=== PATIENT | male | born 1990 | race Hispanic/Latino ===

== ENCOUNTER 2024-03-16 17:02 | Inpatient (IN) | payer BC ==
[~2024-03-16] VITALS: Ht 170.2 cm; Wt 86.5 kg
[~2024-03-16 17:02] MED LIST: ATOR40TA69 PO; FENO145T PO; FISH1CAP20 PO; INSU100I35 SQ; NIAC250T34 PO
--- NOTE | 2024-03-16 18:11 | EKG ---
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
[2024-03-16 18:22] LABS: BASOPHILS # (AUTO) 0.03 K/uL (0.00-0.20); BASOPHILS % (AUTO) 0.5 % (0.0-5.0); EOSINOPHILS # (AUTO) 0.03 K/uL (0.00-0.70); EOSINOPHILS % (AUTO) 0.5 % (0.0-8.0); HEMATOCRIT 49.2 % (42-54); IMMATURE GRANULOCYTE ABSOLUTE 0.03 K/uL (0-1); LYMPHOCYTES # (AUTO) 2.1 K/uL (1.0-4.8); LYMPHOCYTES % (AUTO) 35.4 % (21.0-51.0); MEAN CORPUSCULAR HEMOGLOBIN 30.9 pg (27.0-33.0); MEAN CORPUSCULAR HGB CONC 37.4 g/dL (32.0-36.0); MEAN CORPUSCULAR VOLUME 82.7 fL (79-99); MONOCYTES # (AUTO) 0.5 K/uL (0.1-1.0); MONOCYTES % (AUTO) 8.3 % (3.0-13.0); NEUTROPHILS # (AUTO) 3.3 K/uL (1.8-7.7); NEUTROPHILS % (AUTO) 54.8 % (40.0-77.0); PLATELET COUNT (AUTO) 168 K/uL (130-400); RED BLOOD CELL COUNT(AUTO) 5.95 MIL/uL (4.50-6.20); RED CELL DISTRIBUTION WIDTH 12.4 % (11.0-15.5)
--- NOTE | 2024-03-16 18:24 | ERN ---
ED Note History of Present Illness Stated Complaint: SENT BY DR HIGH BLOOD SUGAR Chief Complaint: Hyperglycemia Time Seen by MD: 17:04 Time Seen by Midlevel: 17:04 Dictation: The patient is a 34-year-old male with a history of diabetes not on any medi cation who presents to the emergency department after being sent by the clinic for elevated blood glucose patient reports glucose readings were reported as "high". Reports that for the last three days patient has been having dry mouth, frequent urination, increased thirst. And occasional dizziness. Patient reports he was admitted here before for DKA and was on medication but then was told he did not need any medication. Denies any nausea or vomiting. Denies any chest pain or shortness of breath. Allergies: Coded Allergies: No Known Drug Allergies (Unverified Allergy, Unknown, 08/31/23) Home Meds Active Scripts Insulin NPH Hum/Reg Insulin Hm (Novolin 70-30 Flexpen) 100 Unit/Ml (70-30) Insuln.pen, 1 UNIT SQ BIDMEALS for 30 Days, #13.5 ML 30 units every morning and 15 units every night Prov:CHRIS RIDLEY IV, MD 09/06/23 O'Brien-3 Fatty Acids/Fish Oil (Eql Fish Oil 1,000 mg Softgel) 300 Mg-1,000 Mg Capsule, 2000 MG PO BID, #60 CAP Prov:CHRIS RIDLEY IV, MD 09/06/23 Niacin (Slo-Niacin) 250 Mg Tablet.er, 250 MG PO HS, #30 TAB Prov:CHRIS RIDLEY IV, MD 09/06/23 Fenofibrate Nanocrystallized (Tricor) 145 Mg Tablet, 145 MG PO DAILY, #30 TAB Prov:CHRIS RIDLEY IV, MD 09/06/23 Atorvastatin Calcium (LIPITOR) 40 Mg Tablet, 40 MG PO HS, #30 TAB Prov:CHRIS RIDLEY IV, MD 09/06/23 Past Medical History Past Medical History: Diabetes-Type II, High Cholesterol Surgical History: None RN Note Reviewed/Agreed w/PFSH: Yes Review of System Dictation Constitutional: Negative for fever,chills, and weight loss Eyes: Negative for injury, pain,redness, and discharge ENT: Negative for injury,pain or swelling Cardiovascular: Negative for chest pain, palpitations, and edema Respiratory: Negative for shortness of breath, cough, and wheezing, Abdomen/GI: Negative for abdominal pain, nausea, vomiting, diarrhea, and constipation Back: Negative for injury and pain : Negative for injury, bleeding and discharge positive for frequent urination MS/Extremity: Negative for injury and deformity Skin: Negative for rash, and discoloration Neuro: Negative for headache, weakness, numbness, tingling, and seizure positive for dizziness Psych: Negative for suicide ideation, homicidal ideation, and hallucinations Initial Vital Sign VS Vital Signs Date Time Temp Pulse Resp B/P (MAP) Pulse Ox O2 Delivery O2 Flow Rate FiO2 03/16/24 18:16 97.5 101 20 129/80 97 Room Air 0 Physical Exam Dictation Vital Signs reviewed General Appearance: Alert, oriented x 3, no acute distress, well developed, nourished. Head and Face: non-traumatic. Eyes: PERRL, pink conjunctivas, eyelid no trauma, anterior chamber with arcus senilis. Ears: Pinnas intact and no signs of trauma or erythema ear canals clear and no discharge TM no erythema Nose: No discharge, no bleeding. Oropharynx: Mouth normal, tongue pink. pharynx clear,no erythema, tonsils no exudates, no abscesses noted, mucous membrane moist Neck: Supple, non-tender, no thyromegaly, no masses, no JVD, no bruits Breast:Deferred Chest:No tenderness, no crepitus, no paradoxical movement, no retractions Lungs:Clear, well-ventilated, symmetric, no rales, no wheezing, no rhonchi, no stridor, good breath sounds bilaterally Heart: Regular rate, regular rhythm, no murmur, no gallops Vascular: no peripheral edema, Abdomen: Soft, positive bowel sounds, nondistended, no guarding, nontender, no rebound, no masses no hepatomegaly, no splenomegaly, no Mclain's sign, no hernias. Rectal: Deferred Genital: Deferred Neurological: Normal speech, motor function intact, sensory function intact Musculoskeletal: Neck nontender, full range of motion, back nontender, full range of motion, Extremities: nontender, full range of motion Skin: Color pink, dry, no turgor, no rash, no lacerations, no abrasions, no contusions. Lymphatic: Deferred Results (Laboratory/Radiology) Laboratory/Radiology Laboratory Tests Test 03/16/24 18:07 03/16/24 20:17 White Blood Count 6.0 K/uL (4.8-10.8) Red Blood Count 5.95 MIL/uL (4.50-6.20) Hemoglobin 18.4 g/dL (14.0-18.0) H Hematocrit 49.2 % (42-54) Mean Corpuscular Volume 82.7 fL (79-99) Mean Corpuscular Hemoglobin 30.9 pg (27.0-33.0) Mean Corpuscular Hemoglobin Concent 37.4 g/dL (32.0-36.0) H Red Cell Distribution Width 12.4 % (11.0-15.5) Platelet Count 168 K/uL (130-400) Mean Platelet Volume 13.4 fL (7.5-10.5) H Immature Granulocyte % (Auto) 0.5 % (0-1) Neutrophils (%) (Auto) 54.8 % (40.0-77.0) Lymphocytes (%) (Auto) 35.4 % (21.0-51.0) Monocytes (%) (Auto) 8.3 % (3.0-13.0) Eosinophils (%) (Auto) 0.5 % (0.0-8.0) Basophils (%) (Auto) 0.5 % (0.0-5.0) Neutrophils # (Auto) 3.3 K/uL (1.8-7.7) Lymphocytes # (Auto) 2.1 K/uL (1.0-4.8) Monocytes # (Auto) 0.5 K/uL (0.1-1.0) Eosinophils # (Auto) 0.03 K/uL (0.00-0.70) Basophils # (Auto) 0.03 K/uL (0.00-0.20) Absolute Immature Granulocyte (auto 0.03 K/uL (0-1) Nucleated Red Blood Cells 0.0 % (0.0-0.19) Red Blood Cell Morphology See comments Sodium Level 127 mmol/L (136-145) L Potassium Level 4.4 mmol/L (3.5-5.1) Chloride Level 89 mmol/L (101-111) *L Carbon Dioxide Level 29 mmol/L (21-32) Blood Urea Nitrogen 14 mg/dL (7-18) Creatinine 1.1 mg/dL (0.5-1.3) Glomerular Filtration Rate Calc 89 mL/min (>90) Random Glucose 629 mg/dL (70-105) *H Whole Blood Ketones Quantitative 2.8 mmol/L (0.0-0.6) H Total Calcium 10.4 mg/dL (8.5-10.1) H Magnesium Level 2.30 mg/dL (1.80-2.40) Total Creatine Kinase 92 U/L (21-232) # Troponin I High Sensitivity < 4 ng/L (4-75) L Blood Gas Specimen Type Arterial Arterial Blood pH 7.382 (7.350-7.450) Arterial Blood Partial Pressure CO2 38 mmHg (35-48) Arterial Blood Partial Pressure O2 91.6 mmHg (83.0-108.0) Arterial Blood HCO3 21.9 mmol/L (21.0-28.0) Arterial Blood Oxygen Saturation 96.9 % (94.0-98.0) Arterial Blood Base Excess -2.7 mmol/L (-2.0-3.0) L Blood Gas Temperature 37.0 CELSIUS (35.5-37.0) Blood Gas Vent Mode ROOMAIR (ROOM AIR) FiO2 21.0 % Blood Gas Specimen Comment RB P JENIFER REASON: cp ORDERING PHYSICIAN: JENIFER SALEH PROCEDURE: CXR1VW - CHEST 1VW CHEST 1VW REASON: cp COMPARISON: 08/31/2023 FINDINGS: Single view of the chest was obtained. Lungs are clear. Heart size is normal. There is no pulmonary vascular congestion. Mediastinum and bony thorax appear unremarkable. IMPRESSION: 1. Normal single view chest x-ray. Labs Reviewed?: Yes EKG: (+) rhythm (Sinus rhythm) EKG Comment: Date:03/16/2024 Time:1803 Ventricular rate:97 IN interval:171 QRS duration:94 QT/QTc:315 EKG interpretation: Sinus rhythm Reviewed by ED Attending no STEMI ED Course ED Course Orders Procedure Category Date Status Time Cbc With Differential LAB 03/16/24 Complete 17:43 Troponin I High LAB 03/16/24 Complete Sensitivity 17:43 Urinalysis Profile LAB 03/16/24 Logged 17:43 12 Lead Ekg Tracing- EKG 03/16/24 Complete Technical 17:43 0.9%Nacl 1000ml (Ns PHA 03/16/24 Complete 1000ml) 18:00 Creatine Kinase, Total LAB 03/16/24 Complete 17:43 Basic Metabolic Panel LAB 03/16/24 Complete 17:43 Ketone Blood LAB 03/16/24 Complete Quantitative 17:43 Chest 1vw RAD 03/16/24 Resulted 17:43 Insulin Regular, PHA 03/16/24 Complete Human 3ml (Humulin R 19:00 Magnesium LAB 03/16/24 Complete 18:58 Arterial Blood Gas RT 03/16/24 Transmitted 19:16 Arterial Blood Gas LAB 03/16/24 Complete 20:17 Admit Orders ADM 03/16/24 Transmitted 20:52 Edm Admit Bridge Order ADM 03/16/24 Transmitted 20:52 Current Medications Medications (Trade) Dose Ordered Sig/Sherine Route PRN Reason Start Time Stop Time Status Last Admin Dose Admin Insulin Human Regular (humuLIN R 100 UNIT/ML 3ML) 10 unit ONCE ONCE IV 03/16/24 19:00 03/16/24 19:03 DC Sodium Chloride 1,000 ml @ 0 mls/hr ONCE ONCE IV 03/16/24 18:00 03/16/24 18:01 DC Vital Signs Date Time Temp Pulse Resp B/P (MAP) Pulse Ox O2 Delivery O2 Flow Rate FiO2 03/16/24 18:16 97.5 101 20 129/80 97 Room Air 0 Medical Decision Making MDM MDM: The patient is a 34-year-old male with a history of diabetes not on any medication who presents to the emergency department after being sent by the clinic for elevated blood glucose patient reports glucose readings were reported as "high". Reports that for the last three days patient has been having dry mouth, frequent urination, increased thirst. And occasional dizziness. Patient reports he was admitted here before for DKA and was on medication but then was told he did not need any medication. Denies any nausea or vomiting. Denies any chest pain or shortness of breath. CBC showed no leukocytosis, no anemia chemistry showed elevated blood glucose, severe hypochloremia, hyponatremia, negative troponin. No DKA. X-ray unremarkable. Patient will be admitted for further management of hyperglycemia. Differential diagnosis: DKA, hyperglycemia, electrolyte imbalance, dehydration Comorbidities: Diabetes Tests considered and not ordered secondary to shared decision making include: none Previous outside records reviewed: none Risk of complication and/or morbidity or mortality of patient management: The patient meets criteria for admission. Need for emergency major/minor surgery: No There are no social concerns with this patient. I independently interpreted the tests I ordered (labs, urinalysis, etc.). I discussed the case with the hospitalist for admission. Tiffany TORRE who accepts admission I discussed the case with the following specialists: none. Historian: pateint. I independently interpreted imaging studies and EKGs that I ordered (US, CT, XR, EKG, etc.). External chart review: none. Medical management and examination interpretation discussions were had by me with other qualified healthcare professionals as indicated for the patient's care. DX & DISP Disposition: Inpatient Decision to Admit Date: Mar 16, 2024 Decision to Admit Time: 20:59 Departure Impression: Primary Impression: Uncontrolled diabetes mellitus with hyperglycemia Additional Impressions: Hyponatremia, Hypochloremia Condition: Stable Referrals: SELF,REFERRAL (PCP) I have reviewed the case, and I agree with, Diagnosis and Plan JENIFER SALEH Mar 16, 2024 18:24
[2024-03-16 18:40] LABS: CREATININE 1.1 mg/dL (0.5-1.3); POTASSIUM 4.4 mmol/L (3.5-5.1)
[2024-03-16 20:18] LABS: ABG BASE EXCESS -2.7 mmol/L (-2.0-3.0); ABG HCO3 21.9 mmol/L (21.0-28.0); ABG OXYGEN SATURATION 96.9 % (94.0-98.0); ABG PCO2 38 mmHg (35-48); ABG PH 7.382 (7.350-7.450); PO2, ARTERIAL BG 91.6 mmHg (83.0-108.0); VENT MODE, BG ROOMAIR (ROOM AIR)
--- NOTE | 2024-03-16 20:56 | HP ---
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 Seen and examined patient in the ED awake,alert ,coherent and ambulatory. Denies fever, chills, nausea, vomiting, cough, chest pain, palpitation, a bdominal pain and shortness of breath. Latest vital signs temperature 97.5, heart rate 101, respiration 20 blood pressure 129/80 saturation 97% on room air. Labs: WBC 6, hemoglobin 18, hematocrit 49 platelet count 168. Sodium 127, potassium 4.4, chloride 89, glucose 629, serum ketones 2.8, total calcium 10.4, Mag 2.3 troponin less than four. Urinalysis positive with esterase. Urine toxicology negative. Chest x-ray is normal. While in the ER patient received 1 L NS bolus and 10 units of insulin IV. We will admit patient for further medical management. REVIEW OF SYSTEMS CONSTITUTIONAL: complaints of fatigue Denies fevers, chills, or night sweats. No unintentional weight loss reported. NEUROLOGICAL: Denies headache, amaurosis fugax, motor weakness, sensory deficit, vertigo/spinning sensation, gait abnormalities, or tremors. ENT: No hearing loss, otalgia, otorrhea, rhinitis, rhinorrhea, hoarseness, or sore throat. CARDIOVASCULAR: Denies any exertional angina, dyspnea on exertion, orthopnea, paroxysmal nocturnal dyspnea, palpitations, life-threatening arrhythmias, claudication. PULMONARY: Denies any shortness of breath, cough, phlegm/sputum, hemoptysis, pleuritic chest pain. SLEEP: Denies morning headaches, daytime somnolence or napping. Denies difficulty falling asleep, staying asleep, waking from sleep. Denies knowledge of snoring. GASTROINTESTINAL:complained increased thirst and dry mouth Denies any type of dysphagia to either liquids or solids. Denies nausea, vomiting, pyrosis, abdominal pain, diarrhea, constipation, or changes in stool consistency or caliber. Denies coffee-ground emesis, hematemesis, hematochezia, or melanotic stools. GENITOURINARY: complained of increased urine frequency Denies urgency, nocturia, hematuria or incontinence (Storage/Irritative symptoms.) Low urinary stream, straining to void, urinary intermittency or hesitancy, splitting of the voiding stream, terminal dribbling. ENDOCRINOLOGIC: Denies polyuria, polydipsia, polyphagia or heat/cold intolerances. HEMATOLOGIC: Denies thrombophilia/previous clots, or coagulopathy/bleeding disorders. ONCOLOGIC: Denies personal history of malignancy. DERMATOLOGIC: Denies rashes or pruritus. PSYCHIATRIC: Denies any suicidal or homicidal ideation. Denies hallucinations. PAST MEDICAL HISTORY: [Diabetes and Hyperlipidemia ] PAST SURGICAL HISTORY: [ Patient denies] PAST SOCIAL HISTORY: [ Patient denies alcohol,cigarette and recreational drug use ] FAMILY HISTORY: [ Noncontributory ] Coded Allergies: No Known Drug Allergies (Unverified Allergy, Unknown, 08/31/23) PHYSICAL EXAM GENERAL APPEARANCE: The patient is awake, alert, and oriented, in no acute cardiopulmonary distress. NEUROLOGICAL: Cranial nerves II-XII grossly intact. Motor is 5/5 in bilateral upper and lower extremities proximal to distal. No sensory deficits. HEENT: Face is symmetric. Pupils are equal and reactive. Extraocular movements are intact. NECK: Supple. No JVD. No thyromegaly. No submental, submandibular, pre- /postauricular, occipital or supraclavicular lymphadenopathy. CHEST: Normal chest expansion. No Telemetry. LUNGS: Absence of any rales, rhonchi or any wheezing. CARDIOVASCULAR: Regular. S1 and S2 normal. No appreciable rubs, murmurs or gallops. ABDOMEN: Soft, nontender, and nondistended. There is no rebound, voluntary guarding, or rigidity. : Deferred. No Garcia. EXTREMITIES: Non-edematous and not cyanotic. No clubbing. Good capillary refill. SKIN: No skin breakdown. Vital Sign (Last 24 Hours) 03/16/24 18:16 Temp 97.5 Pulse 101 Resp 20 B/P (MAP) 129/80 Pulse Ox 97 O2 Delivery Room Air O2 Flow Rate 0 LABS: Laboratory: Test 03/16/24 20:17 03/16/24 18:07 Range/Units Blood Gas Specimen Type Arterial Arterial Blood pH 7.382 7.350-7.450 Arterial Blood Partial Pressure CO2 38 35-48 mmHg Arterial Blood Partial Pressure O2 91.6 83.0-108.0 mmHg Arterial Blood HCO3 21.9 21.0-28.0 mmol/L Arterial Blood Oxygen Saturation 96.9 94.0-98.0 % Arterial Blood Base Excess -2.7 L -2.0-3.0 mmol/L Blood Gas Temperature 37.0 35.5-37.0 CELSIUS Blood Gas Vent Mode ROOMAIR ROOM AIR FiO2 21.0 % Blood Gas Specimen Comment RB FMP JENIFER White Blood Count 6.0 4.8-10.8 K/uL Red Blood Count 5.95 4.50-6.20 MIL/uL Hemoglobin 18.4 H 14.0-18.0 g/dL Hematocrit 49.2 42-54 % Mean Corpuscular Volume 82.7 79-99 fL Mean Corpuscular Hemoglobin 30.9 27.0-33.0 pg Mean Corpuscular Hemoglobin Concent 37.4 H 32.0-36.0 g/dL Red Cell Distribution Width 12.4 11.0-15.5 % Platelet Count 168 130-400 K/uL Mean Platelet Volume 13.4 H 7.5-10.5 fL Immature Granulocyte % (Auto) 0.5 0-1 % Neutrophils (%) (Auto) 54.8 40.0-77.0 % Lymphocytes (%) (Auto) 35.4 21.0-51.0 % Monocytes (%) (Auto) 8.3 3.0-13.0 % Eosinophils (%) (Auto) 0.5 0.0-8.0 % Basophils (%) (Auto) 0.5 0.0-5.0 % Neutrophils # (Auto) 3.3 1.8-7.7 K/uL Lymphocytes # (Auto) 2.1 1.0-4.8 K/uL Monocytes # (Auto) 0.5 0.1-1.0 K/uL Eosinophils # (Auto) 0.03 0.00-0.70 K/uL Basophils # (Auto) 0.03 0.00-0.20 K/uL Absolute Immature Granulocyte (auto 0.03 0-1 K/uL Nucleated Red Blood Cells 0.0 0.0-0.19 % Red Blood Cell Morphology See comments Sodium Level 127 L 136-145 mmol/L Potassium Level 4.4 3.5-5.1 mmol/L Chloride Level 89 *L 101-111 mmol/L Carbon Dioxide Level 29 21-32 mmol/L Blood Urea Nitrogen 14 7-18 mg/dL Creatinine 1.1 0.5-1.3 mg/dL Glomerular Filtration Rate Calc 89 >90 mL/min Random Glucose 629 *H 70-105 mg/dL Whole Blood Ketones Quantitative 2.8 H 0.0-0.6 mmol/L Total Calcium 10.4 H 8.5-10.1 mg/dL Magnesium Level 2.30 1.80-2.40 mg/dL Total Creatine Kinase 92 # 21-232 U/L Troponin I High Sensitivity < 4 L 4-75 ng/L DIAGNOSTICS / RADIOLOGY: [ ] ASSESSMENT: Early DKA POA Hyperlipidemia POA Medical noncompliance POA PLAN: We will admit patient in PCCU We will start on consistent carb diet We will start NS @ 150 ml / hr and re evaluate We will start patient on Rocephin 1 g IV daily for empiric coverage We will start 20 mg IV b.i.d. for GI prophylaxis We will replace electrolytes as needed per protocol We will start on insulin sliding scale q.4 hours with hypoglycemia protocol We will add prn medication for fever,pain,cough ,nausea and vomiting We will reconcile home meds once medlist available We will seek endocrinology consultation We will request labs in am Further orders to follow depending on above results Case discussed with attending physician and came up with above treatment and plan of care. ADVANCED CARE PLANNING 1. Which of the following were discussed? Hospice Care - No Therapeutic options - Yes Advance Directives - No Other discussions - 2. Discussed with who? Patient 3. Voluntary nature of this service was explained to the patient? Yes 4. Amount of time spent - __20 5. Reviewed by Physician? (if this service was performed by NPP) Yes Patient seen and examined by me. Agree with note by NATURAL RESOURCES PROFESSOR SEE ADDITIONAL ORDERS PER CHART DISCUSSED WITH NURSING STAFF DONDON,HUNG P [employer] Mar 16, 2024 20:56
[2024-03-16 21:20] LABS: APPEARANCE,URINE CLEAR (CLEAR); BILIRUBIN,URINE NEGATIVE (NEGATIVE); COLOR,URINE COLORLESS (YELLOW); GLUCOSE, URINE (UA) >=1000 mg/dL (NEGATIVE); KETONES,URINE 40 mg/dL (NEGATIVE); LEUKOCYTE ESTERASE ,URINE 25 Leu/uL (NEGATIVE); NITRATE,URINE NEGATIVE (NEGATIVE); OCCULT BLOOD,URINE NEGATIVE (NEGATIVE); PH,URINE 5.5 (5.0-8.0); PROTEIN,URINE NEGATIVE (NEGATIVE); UROBILINOGEN,URINE 0.2 mg/dL (0.2-1.0)
[2024-03-16 21:22] LABS: ADD UA MICROSCOPIC YES
[2024-03-16 21:23] LABS: MUCUS,URINE RARE LPF (None Seen)
[2024-03-16] MEDS ORDERED: PoTASSium chl 10% ELIXIR 20MEQ 20 MEQ/15 ML UDCUP PO PRN (21:30)
[2024-03-16] MEDS ORDERED: PoTASSium chloRIDE 20MEQ/100ML 100 ML IV PRN ×2 (21:30)
[2024-03-16] MEDS ORDERED: MAGNESIUM 2GM PREMIX 50ML 50 ML IV PRN (21:30)
[2024-03-16] MEDS ORDERED: ondanSETRON 4MG INJ IV PRN (21:30)
[2024-03-16] MEDS ORDERED: PoTASSium chloRIDE 20MEQ ER 20 MEQ ERTAB PO PRN (21:30)
[2024-03-16] MEDS ORDERED: acetaMINOPHEN 325 MG TAB PO PRN ×2 (21:30)
[2024-03-16] MEDS: INSULIN humuLIN R 100 UNIT/ML 3ML SQ SCH (21:30)
[2024-03-16 21:43] LABS: AMPHET/METH SCREEN,URINE NEGATIVE (NEGATIVE); BARBITURATE SCREEN, URINE NEGATIVE (NEGATIVE); BENZODIAZEPINES SCREEN,URINE NEGATIVE (NEGATIVE); CANNABINOID SCREEN,URINE NEGATIVE (NEGATIVE); COCAINE SCREEN,URINE NEGATIVE (NEGATIVE); OPIATE SCREEN,URINE NEGATIVE (NEGATIVE); PHENCYCLIDINE SCREEN,URINE NEGATIVE (NEGATIVE)
--- NOTE | 2024-03-16 23:25 | NUR ---
ASSUMED PT CARE AT THIS TIME
[2024-03-16 23:36] LABS: CREATININE 1.1 mg/dL (0.5-1.3); POTASSIUM 5.1 mmol/L (3.5-5.1)
[2024-03-16] MEDS: 0.9%NACL 1000ML 1,000 ML IV ONE (23:40)
[2024-03-16] MEDS: cefTRIAXone 1G VIAL IVPB SCH (23:40)
[2024-03-16] MEDS: INSULIN humuLIN R 100 UNIT/ML 3ML IV ONE (23:42)
--- NOTE | 2024-03-17 01:54 | NUR ---
REPORT GIVEN TO DA RN
[2024-03-17] MEDS: 0.9%NACL 1000ML 1,000 ML IV SCH (02:05)
[2024-03-17 07:22] LABS: BASOPHILS # (AUTO) 0.03 K/uL (0.00-0.20); BASOPHILS % (AUTO) 0.5 % (0.0-5.0); EOSINOPHILS # (AUTO) 0.06 K/uL (0.00-0.70); HEMATOCRIT 44.6 % (42-54); HEMOGLOBIN A1C 9.3 % (4.0-6.0); IMMATURE GRANULOCYTE ABSOLUTE 0.02 K/uL (0-1); LYMPHOCYTES # (AUTO) 2.6 K/uL (1.0-4.8); LYMPHOCYTES % (AUTO) 43.9 % (21.0-51.0); MEAN CORPUSCULAR HEMOGLOBIN 30.1 pg (27.0-33.0); MEAN CORPUSCULAR HGB CONC 36.1 g/dL (32.0-36.0); MEAN CORPUSCULAR VOLUME 83.4 fL (79-99); MONOCYTES # (AUTO) 0.4 K/uL (0.1-1.0); MONOCYTES % (AUTO) 6.8 % (3.0-13.0); NEUTROPHILS # (AUTO) 2.8 K/uL (1.8-7.7); NEUTROPHILS % (AUTO) 47.5 % (40.0-77.0); PLATELET COUNT (AUTO) 147 K/uL (130-400); RED BLOOD CELL COUNT(AUTO) 5.35 MIL/uL (4.50-6.20); RED CELL DISTRIBUTION WIDTH 12.6 % (11.0-15.5); WHITE BLOOD COUNT (AUTO) 5.9 K/uL (4.8-10.8)
[2024-03-17 07:59] LABS: ALBUMIN 3.6 g/dL (3.5-5.0); BILIRUBIN,TOTAL 0.8 mg/dL (0.2-1.0); CREATININE 0.8 mg/dL (0.5-1.3); MAGNESIUM 1.7 mg/dL (1.80-2.40); POTASSIUM 3.7 mmol/L (3.5-5.1); THYROID STIMULATING HORMONE 0.76 uIU/mL (0.36-3.74); TOTAL PROTEIN, SERUM 6.8 g/dL (6.0-8.3)
--- NOTE | 2024-03-17 09:35 | NUR ---
CALLED DR. SHI AT 0935 FOR CONSULT , STATES SINCE MAY BE DISCHARGED HOME PER DR. POPE HE CAN SEE PT OUTPT AT HIS CLINIC.
[2024-03-17] MEDS: FAMOTIDINE 20MG VIAL IV SCH (09:43)
[2024-03-17] MEDS: PoTASSium chloRIDE 20MEQ/100ML 100 ML IV ONE (09:48)
--- NOTE | 2024-03-17 13:06 | PN ---
[facility] PROGRESS NOTE Date of Service: Mar 17, 2024 Time of Service: 13:01 SUBJECTIVE: [ ] Patient is seen and examined remains in ED 13. Patient is fully awake alert oriented x3. blood sugars much controlled was start home regimen. Possible discharge in the next24 hours goal is to keep blood sugars below 200 REVIEW OF SYSTEMS CONSTITUTIONAL: complaints of fatigue Denies fevers, chills, or night sweats. No unintentional weight loss reported. NEUROLOGICAL: Denies headache, amaurosis fugax, motor weakness, sensory deficit, vertigo/spinning sensation, gait abnormalities, or tremors. ENT: No hearing loss, otalgia, otorrhea, rhinitis, rhinorrhea, hoarseness, or sore throat. CARDIOVASCULAR: Denies any exertional angina, dyspnea on exertion, orthopnea, paroxysmal nocturnal dyspnea, palpitations, life-threatening arrhythmias, claudication. PULMONARY: Denies any shortness of breath, cough, phlegm/sputum, hemoptysis, pleuritic chest pain. SLEEP: Denies morning headaches, daytime somnolence or napping. Denies difficulty falling asleep, staying asleep, waking from sleep. Denies knowledge of snoring. GASTROINTESTINAL:complained increased thirst and dry mouth Denies any type of dysphagia to either liquids or solids. Denies nausea, vomiting, pyrosis, abdominal pain, diarrhea, constipation, or changes in stool consistency or caliber. Denies coffee-ground emesis, hematemesis, hematochezia, or melanotic stools. GENITOURINARY: complained of increased urine frequency Denies urgency, nocturia, hematuria or incontinence (Storage/Irritative symptoms.) Low urinary stream, straining to void, urinary intermittency or hesitancy, splitting of the voiding stream, terminal dribbling. ENDOCRINOLOGIC: Denies polyuria, polydipsia, polyphagia or heat/cold intolerances. HEMATOLOGIC: Denies thrombophilia/previous clots, or coagulopathy/bleeding disorders. ONCOLOGIC: Denies personal history of malignancy. DERMATOLOGIC: Denies rashes or pruritus. PSYCHIATRIC: Denies any suicidal or homicidal ideation. Denies hallucinations. PHYSICAL EXAM GENERAL APPEARANCE: The patient is awake, alert, and oriented, in no acute cardiopulmonary distress. NEUROLOGICAL: Cranial nerves II-XII grossly intact. Motor is 5/5 in bilateral upper and lower extremities proximal to distal. No sensory deficits. HEENT: Face is symmetric. Pupils are equal and reactive. Extraocular movements are intact. NECK: Supple. No JVD. No thyromegaly. No submental, submandibular, pre- /postauricular, occipital or supraclavicular lymphadenopathy. CHEST: Normal chest expansion. No Telemetry. LUNGS: Absence of any rales, rhonchi or any wheezing. CARDIOVASCULAR: Regular. S1 and S2 normal. No appreciable rubs, murmurs or gallops. ABDOMEN: Soft, nontender, and nondistended. There is no rebound, voluntary guarding, or rigidity. : Deferred. No Garcia. EXTREMITIES: Non-edematous and not cyanotic. No clubbing. Good capillary refill. SKIN: No skin breakdown. Vital Signs (last 8hr) Date Time Temp Pulse Resp B/P (MAP) Pulse Ox O2 Delivery O2 Flow Rate FiO2 03/17/24 08:48 98.2 82 16 114/82 97 Room Air* 0 21 LABS: Laboratory: Test 03/17/24 09:44 03/17/24 06:48 03/16/24 23:38 03/16/24 21:11 Range/Units Whole Blood Glucose 244 H 70-110 MG/DL White Blood Count 5.9 4.8-10.8 K/uL Red Blood Count 5.35 4.50-6.20 MIL/uL Hemoglobin 16.1 14.0-18.0 g/dL Hematocrit 44.6 42-54 % Mean Corpuscular Volume 83.4 79-99 fL Mean Corpuscular Hemoglobin 30.1 27.0-33.0 pg Mean Corpuscular Hemoglobin Concent 36.1 H 32.0-36.0 g/dL Red Cell Distribution Width 12.6 11.0-15.5 % Platelet Count 147 130-400 K/uL Mean Platelet Volume 13.2 H 7.5-10.5 fL Immature Granulocyte % (Auto) 0.3 0-1 % Neutrophils (%) (Auto) 47.5 40.0-77.0 % Lymphocytes (%) (Auto) 43.9 21.0-51.0 % Monocytes (%) (Auto) 6.8 3.0-13.0 % Eosinophils (%) (Auto) 1.0 0.0-8.0 % Basophils (%) (Auto) 0.5 0.0-5.0 % Neutrophils # (Auto) 2.8 1.8-7.7 K/uL Lymphocytes # (Auto) 2.6 1.0-4.8 K/uL Monocytes # (Auto) 0.4 0.1-1.0 K/uL Eosinophils # (Auto) 0.06 0.00-0.70 K/uL Basophils # (Auto) 0.03 0.00-0.20 K/uL Absolute Immature Granulocyte (auto 0.02 0-1 K/uL Nucleated Red Blood Cells 0.0 0.0-0.19 % Sodium Level 138 136-145 mmol/L Potassium Level 3.7 3.5-5.1 mmol/L Chloride Level 99 L 101-111 mmol/L Carbon Dioxide Level 28 21-32 mmol/L Blood Urea Nitrogen 10 7-18 mg/dL Creatinine 0.8 0.5-1.3 mg/dL Glomerular Filtration Rate Calc 118 >90 mL/min Random Glucose 235 H 70-105 mg/dL Hemoglobin A1c 9.3 H 4.0-6.0 % Estimated Average Glucose (eAG) 220 H 70-126 mg/dL Total Calcium 8.9 8.5-10.1 mg/dL Magnesium Level 1.70 L 1.80-2.40 mg/dL Total Bilirubin 0.8 0.2-1.0 mg/dL Aspartate Amino Transf (AST/SGOT) 12 10-37 U/L Alanine Aminotransferase (ALT/SGPT) 27 12-78 U/L Alkaline Phosphatase 82 50-136 U/L Total Protein 6.8 6.0-8.3 g/dL Albumin 3.6 3.5-5.0 g/dL Triglycerides Level 245 H 30-200 mg/dL Cholesterol Level 151 # <200 mg/dL LDL Cholesterol 67 0-99 mg/dL HDL Cholesterol 42 29-71 mg/dL Thyroid Stimulating Hormone (TSH) 0.76 0.36-3.74 uIU/mL Bedside Glucose Comment Notified Nurse Urine Color COLORLESS YELLOW Urine Appearance CLEAR CLEAR Urine pH 5.5 5.0-8.0 Urine Specific [place] 1.039 H 1.001-1.031 Urine Protein NEGATIVE NEGATIVE mg/dL Urine Glucose (UA) >=1000 H NEGATIVE mg/dL Urine Ketones 40 H NEGATIVE mg/dL Urine Occult Blood NEGATIVE NEGATIVE Urine Nitrate NEGATIVE NEGATIVE Urine Bilirubin NEGATIVE NEGATIVE mg/dL Urine Urobilinogen 0.2 0.2-1.0 mg/dL Urine Leukocyte Esterase 25 H NEGATIVE Dez/uL Urine RBC 2-5 H 0-1 /HPF Urine WBC 2-5 H 0-1 /HPF Urine Bacteria None None Seen /HPF Urine Opiates Screen NEGATIVE NEGATIVE Urine Barbiturates Screen NEGATIVE NEGATIVE Urine Phencyclidine Screen NEGATIVE NEGATIVE Urine Amphetamines Screen NEGATIVE NEGATIVE Urine Benzodiazepines Screen NEGATIVE NEGATIVE Urine Cocaine Screen NEGATIVE NEGATIVE Urine Marijuana (THC) Screen NEGATIVE NEGATIVE Test 03/16/24 20:17 03/16/24 18:07 Range/Units Blood Gas Specimen Type Arterial Arterial Blood pH 7.382 7.350-7.450 Arterial Blood Partial Pressure CO2 38 35-48 mmHg Arterial Blood Partial Pressure O2 91.6 83.0-108.0 mmHg Arterial Blood HCO3 21.9 21.0-28.0 mmol/L Arterial Blood Oxygen Saturation 96.9 94.0-98.0 % Arterial Blood Base Excess -2.7 L -2.0-3.0 mmol/L Blood Gas Temperature 37.0 35.5-37.0 CELSIUS Blood Gas Vent Mode ROOMAIR ROOM AIR FiO2 21.0 % Blood Gas Specimen Comment RB FMP JENIFER Red Blood Cell Morphology See comments Whole Blood Ketones Quantitative 2.8 H 0.0-0.6 mmol/L Total Creatine Kinase 92 # 21-232 U/L Troponin I High Sensitivity < 4 L 4-75 ng/L Current Medications Medications (Trade) Dose Ordered Sig/Sherine Route PRN Reason Start Time Stop Time Status Last Admin Dose Admin Acetaminophen (TYLenol 325MG TAB) 650 mg Q4H PRN PO MILD PAIN (1-3) 03/16/24 21:30 04/15/24 21:29 Acetaminophen (TYLenol 325MG TAB) 650 mg Q6H PRN PO TEMPERATURE GREATER THAN 101.5 03/16/24 21:30 04/15/24 21:29 Ceftriaxone Sodium (ROCEphine 1G INJ) 1 gm Q24H IVPB 03/16/24 22:00 03/26/24 21:59 03/16/24 23:40 1 GM Famotidine (Pepcid 20mg Vial) 20 mg BID IV 03/17/24 09:00 04/16/24 08:59 03/17/24 09:43 20 MG Insulin Human Regular (humuLIN R 100 UNIT/ML 3ML) INSULIN SLIDING SCAL... Q4H SQ 03/16/24 21:30 04/15/24 21:29 03/17/24 09:50 8 UNIT Magnesium Sulfate 50 ml @ 0 mls/hr PROTOCOL IV 03/17/24 09:30 04/16/24 09:29 Magnesium Sulfate 50 ml @ 0 mls/hr PROTOCOL PRN IV OTHER [SEE ORDER COMMENTS] 03/16/24 21:30 03/17/24 09:15 DC Ondansetron HCl (zoFRAN 4MG INJ) 4 mg Q6H PRN IV NAUSEA/VOMITING 03/16/24 21:30 04/15/24 21:29 Potassium Chloride 100 ml @ 50 mls/hr AD PRN IV POTASSIUM PROTOCOL 03/16/24 21:30 03/17/24 09:16 DC Potassium Chloride 100 ml @ 100 mls/hr AD PRN IV POTASSIUM PROTOCOL 03/16/24 21:30 04/15/24 21:29 Potassium Chloride (K-Dur/Klor-Con 20meq) 20 meq AD PRN PO POTASSIUM PROTOCOL 03/16/24 21:30 04/15/24 21:29 Potassium Chloride (KCl 10% Elixir 20meq/15ml) 20 meq AD PRN PO POTASSIUM PROTOCOL 03/16/24 21:30 04/15/24 21:29 Sodium Chloride 1,000 ml @ 150 mls/hr Q6H40M IV 03/16/24 21:30 04/15/24 21:29 03/17/24 09:50 150 MLS/HR DIAGNOSTICS / RADIOLOGY: [ ] ASSESSMENT: Early DKA POA Hyperlipidemia POA Medical noncompliance POA PLAN: Admit to medical-surgical floor Diet consistent carb diet IV fluids Hep-Lock Antibiotics Rocephin 1 g IV daily for empiric coverage Supportive measures with 20 mg IV b.i.d. for GI prophylaxis Replace electrolytes as needed per protocol to keep magnesium above two by potassium four Continue insulin sliding scale q.4 hours with hypoglycemia protocol and long- acting 70 30 40 unit a.m. [address] Rhodes will have patient follow up once dischartged repeat labs in am Further orders to follow depending on above results Case discussed with attending physician and came up with above treatment and plan of care. ATTESTATION BY PHYSICIAN I have seen and examined the patient. I reviewed the documentation, medical decision making, and treatment plan as noted by the mid-level provider above. I agree with the findings and plan of care. COLBY POPE MD, ELIZABETH NP Mar 17, 2024 13:06
[2024-03-17] MEDS: INSULIN humuLIN R 100 UNIT/ML 3ML SQ SCH (17:53)
--- NOTE | 2024-03-17 21:46 | NUR ---
REPORT GIVEN TO DANIEL MCINTOSH
[2024-03-17] MEDS: MAGNESIUM 2GM PREMIX 50ML 50 ML IV SCH (21:56)
[2024-03-17 22:05] VITALS: BP 121/68; PULSE 82; RESP 19; TEMP 97.6
[2024-03-17 23:30] VITALS: O2SAT 98
[2024-03-18 04:03] VITALS: BP 112/70; PULSE 82; RESP 18; TEMP 98.6
[2024-03-18 08:00] VITALS: BP 105/66; PULSE 81; RESP 18; TEMP 99
[2024-03-18 09:00] VITALS: O2SAT 98
--- NOTE | 2024-03-18 09:14 | NUR ---
DR SHI (ENDO) PAGED DR SHI REGARDING NEW CONSULT. IS AWARE.
--- NOTE | 2024-03-18 10:56 | DS ---
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 During the course of stay patient DKA resolved. Patient will continue with home regimen insulin 70 30 upon discharge. WRITTEN PRESCRIPTION FOR INSULIN. and follow-up with Dr. Rhodes in one-week. Urine cultures no [id number] hours patient received three doses of Rocephin1 g afebrile. Patient is clinically stable for discharge Procedure(s): REASON: cp ORDERING PHYSICIAN: JENIFER SALEH PROCEDURE: CXR1VW - CHEST 1VW CHEST 1VW REASON: cp COMPARISON: 08/31/2023 FINDINGS: Single view of the chest was obtained. Lungs are clear. Heart size is normal. There is no pulmonary vascular congestion. Mediastinum and bony thorax appear unremarkable. IMPRESSION: 1. Normal single view chest x-ray. 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 20 units p.m. written prescription given. TEACHING: Monitor blood sugars before meals. Compliance with medications Emergency instructions: The patient was instructed to present to the nearest Emergency Department or call 911 should their symptoms return or worsen. Home Medications: Active Scripts Insulin NPH Hum/Reg Insulin Hm (Novolin 70-30 Flexpen) 100 Unit/Ml (70-30) Insuln.pen, 1 UNIT SQ BIDMEALS for 30 Days, #13.5 ML 30 units every morning and 15 units every night Prov:CHRIS RIDLEY IV, MD 09/06/23 Niacin (Slo-Niacin) 250 Mg Tablet.er, 250 MG PO HS, #30 TAB Prov:CHRIS RIDLEY IV, MD 09/06/23 Fenofibrate Nanocrystallized (Tricor) 145 Mg Tablet, 145 MG PO DAILY, #30 TAB Prov:CHRIS RIDLEY IV, MD 09/06/23 Atorvastatin Calcium (LIPITOR) 40 Mg Tablet, 40 MG PO HS, #30 TAB Prov:CHRIS RIDLEY IV, MD 09/06/23 Discontinued Scripts [place]-3 Fatty Acids/Fish Oil (Eql Fish Oil 1,000 mg Softgel) 300 Mg-1,000 Mg Capsule, 2000 MG PO BID, #60 CAP Prov:CHRIS RIDLEY IV, MD 09/06/23 Continued Medications: Atorvastatin Calcium (Lipitor) 40 Mg Tablet 40 MG PO HS, #30 TAB Fenofibrate Nanocrystallized (Tricor) 145 Mg Tablet 145 MG PO DAILY, #30 TAB Insulin NPH Hum/Reg Insulin Hm (Novolin 70-30 Flexpen) 100 Unit/Ml (70-30) Insuln.pen 1 UNIT SQ BIDMEALS for 30 Days, #13.5 ML 30 units every morning and 15 units every night Niacin (Slo-Niacin) 250 Mg Tablet.er 250 MG PO HS, #30 TAB Time spent arranging discharge: 31-60 minutes ATTESTATION BY PHYSICIAN I have seen and examined the patient. I reviewed the documentation, medical decision making, and treatment plan as noted by the mid-level provider above. I agree with the findings and plan of care. COLBY POPE MD, ELIZABETH NP Mar 18, 2024 10:56
[2024-03-18] MEDS: ARTIFICAL TEARS SOL 15 ML OU ONE (11:33)
--- NOTE | 2024-03-18 11:36 | CONS ---
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 patient in the ED awake,alert ,coherent and ambulatory. Denies fever, chills, nausea, vomiting, cough, chest pain, palpitation, abdominal pain and shortness of breath. Latest vital signs temperature 97.5, heart rate 101, respiration 20 blood pressure 129/80 saturation 97% on room air. Labs: WBC 6, hemoglobin 18, hematocrit 49 platelet count 168. Sodium 127, potassium 4.4, chloride 89, glucose 629, serum ketones 2.8, total calcium 10.4, Mag 2.3 troponin less than four. Urinalysis positive with esterase. Urine toxicology negative. Chest x-ray is normal. glucose was running greater than 400 mg/dl but improving now. hba1c 9.3% REVIEW OF SYSTEMS CONSTITUTIONAL: complaints of fatigue Denies fevers, chills, or night sweats. No unintentional weight loss reported. NEUROLOGICAL: Denies headache, amaurosis fugax, motor weakness, sensory deficit, vertigo/spinning sensation, gait abnormalities, or tremors. ENT: No hearing loss, otalgia, otorrhea, rhinitis, rhinorrhea, hoarseness, or sore throat. CARDIOVASCULAR: Denies any exertional angina, dyspnea on exertion, orthopnea, paroxysmal nocturnal dyspnea, palpitations, life-threatening arrhythmias, claudication. PULMONARY: Denies any shortness of breath, cough, phlegm/sputum, hemoptysis, pleuritic chest pain. SLEEP: Denies morning headaches, daytime somnolence or napping. Denies difficulty falling asleep, staying asleep, waking from sleep. Denies knowledge of snoring. GASTROINTESTINAL:complained increased thirst and dry mouth Denies any type of dysphagia to either liquids or solids. Denies nausea, vomiting, pyrosis, abdominal pain, diarrhea, constipation, or changes in stool consistency or caliber. Denies coffee-ground emesis, hematemesis, hematochezia, or melanotic stools. GENITOURINARY: complained of increased urine frequency Denies urgency, nocturia, hematuria or incontinence (Storage/Irritative symptoms.) Low urinary stream, straining to void, urinary intermittency or hesitancy, splitting of the voiding stream, terminal dribbling. ENDOCRINOLOGIC: Denies polyuria, polydipsia, polyphagia or heat/cold intolerances. HEMATOLOGIC: Denies thrombophilia/previous clots, or coagulopathy/bleeding disorders. ONCOLOGIC: Denies personal history of malignancy. DERMATOLOGIC: Denies rashes or pruritus. PSYCHIATRIC: Denies any suicidal or homicidal ideation. Denies hallucinations. PAST MEDICAL HISTORY: [Diabetes and Hyperlipidemia ] PAST SURGICAL HISTORY: [ Patient denies] PAST SOCIAL HISTORY: [ Patient denies alcohol,cigarette and recreational drug use ] FAMILY HISTORY: [ Noncontributory ] Coded Allergies: No Known Drug Allergies (Unverified Allergy, Unknown, 08/31/23) PHYSICAL EXAM GENERAL APPEARANCE: The patient is awake, alert, and oriented, in no acute cardiopulmonary distress. NEUROLOGICAL: Cranial nerves II-XII grossly intact. Motor is 5/5 in bilateral upper and lower extremities proximal to distal. No sensory deficits. HEENT: Face is symmetric. Pupils are equal and reactive. Extraocular movements are intact. NECK: Supple. No JVD. No thyromegaly. No submental, submandibular, pre-/postauricular, occipital or supraclavicular lymphadenopathy. CHEST: Normal chest expansion. No Telemetry. LUNGS: Absence of any rales, rhonchi or any wheezing. CARDIOVASCULAR: Regular. S1 and S2 normal. No appreciable rubs, murmurs or gallops. ABDOMEN: Soft, nontender, and nondistended. There is no rebound, voluntary guarding, or rigidity. : Deferred. No Garcia. EXTREMITIES: Non-edematous and not cyanotic. No clubbing. Good capillary refill. SKIN: No skin breakdown. ASSESSMENT: uncontrolled DM-2 glucose was running greater than 400 mg/dl but improving now. hba1c 9.3% he used to be on novolin 70/30 insulin and metformin but off now. no evidence of dka. Medical noncompliance POA hyperlipidemia PLAN: continue humulin 70/30 insulin 40 units and 20 units pm. monitor glucose [id number]. patient will need insulin at discharge. continue diabetic diet. patient will need metformin 500 bid, novolin 70/30 insulin 40 units am and 20 units pm at discharge. he can follow with me in clinic in 2 weeks. thanks for allowing me to particpate in patient care and will continue to follow up. Vital Signs 03/18/24 03/18/24 08:00 09:00 Temp 99.0 Pulse 81 Resp 18 B/P (MAP) 105/66 Pulse Ox 98 O2 Delivery Room Air* O2 Flow Rate 0 FiO2 21 Hematology Labs: Test 03/17/24 06:48 03/16/24 18:07 Range/Units White Blood Count 5.9 4.8-10.8 K/uL Red Blood Count 5.35 4.50-6.20 MIL/uL Hemoglobin 16.1 14.0-18.0 g/dL Hematocrit 44.6 42-54 % Mean Corpuscular Volume 83.4 79-99 fL Mean Corpuscular Hemoglobin 30.1 27.0-33.0 pg Mean Corpuscular Hemoglobin Concent 36.1 H 32.0-36.0 g/dL Red Cell Distribution Width 12.6 11.0-15.5 % Platelet Count 147 130-400 K/uL Mean Platelet Volume 13.2 H 7.5-10.5 fL Immature Granulocyte % (Auto) 0.3 0-1 % Neutrophils (%) (Auto) 47.5 40.0-77.0 % Lymphocytes (%) (Auto) 43.9 21.0-51.0 % Monocytes (%) (Auto) 6.8 3.0-13.0 % Eosinophils (%) (Auto) 1.0 0.0-8.0 % Basophils (%) (Auto) 0.5 0.0-5.0 % Neutrophils # (Auto) 2.8 1.8-7.7 K/uL Lymphocytes # (Auto) 2.6 1.0-4.8 K/uL Monocytes # (Auto) 0.4 0.1-1.0 K/uL Eosinophils # (Auto) 0.06 0.00-0.70 K/uL Basophils # (Auto) 0.03 0.00-0.20 K/uL Absolute Immature Granulocyte (auto 0.02 0-1 K/uL Nucleated Red Blood Cells 0.0 0.0-0.19 % Red Blood Cell Morphology See comments Chemistry Labs: Test 03/18/24 10:46 03/17/24 06:48 03/16/24 23:38 03/16/24 18:07 Range/Units Whole Blood Glucose 234 H 70-110 MG/DL Sodium Level 138 136-145 mmol/L Potassium Level 3.7 3.5-5.1 mmol/L Chloride Level 99 L 101-111 mmol/L Carbon Dioxide Level 28 21-32 mmol/L Blood Urea Nitrogen 10 7-18 mg/dL Creatinine 0.8 0.5-1.3 mg/dL Glomerular Filtration Rate Calc 118 >90 mL/min Random Glucose 235 H 70-105 mg/dL Hemoglobin A1c 9.3 H 4.0-6.0 % Estimated Average Glucose (eAG) 220 H 70-126 mg/dL Total Calcium 8.9 8.5-10.1 mg/dL Magnesium Level 1.70 L 1.80-2.40 mg/dL Total Bilirubin 0.8 0.2-1.0 mg/dL Aspartate Amino Transf (AST/SGOT) 12 10-37 U/L Alanine Aminotransferase (ALT/SGPT) 27 12-78 U/L Alkaline Phosphatase 82 50-136 U/L Total Protein 6.8 6.0-8.3 g/dL Albumin 3.6 3.5-5.0 g/dL Triglycerides Level 245 H 30-200 mg/dL Cholesterol Level 151 # <200 mg/dL LDL Cholesterol 67 0-99 mg/dL HDL Cholesterol 42 29-71 mg/dL Thyroid Stimulating Hormone (TSH) 0.76 0.36-3.74 uIU/mL Bedside Glucose Comment Notified Nurse Whole Blood Ketones Quantitative 2.8 H 0.0-0.6 mmol/L Total Creatine Kinase 92 # 21-232 U/L Troponin I High Sensitivity < 4 L 4-75 ng/L Current Medications Medications (Trade) Dose Ordered Sig/Sherine Route Start Time Stop Time Status Last Admin Dose Admin Ceftriaxone Sodium (ROCEphine 1G INJ) 1 gm Q24H IVPB 03/16/24 22:00 03/26/24 21:59 03/17/24 21:50 1 GM Famotidine (Pepcid 20mg Vial) 20 mg BID IV 03/17/24 09:00 04/16/24 08:59 03/18/24 08:59 20 MG Insulin Human Isoph/Insulin Regular (humuLIN 70-30 VIAL) 20 unit HS SQ 03/17/24 21:00 04/16/24 20:59 03/17/24 21:40 20 UNIT Insulin Human Isoph/Insulin Regular (humuLIN 70-30 VIAL) 40 unit DAILY SQ 03/18/24 09:00 04/17/24 08:59 03/18/24 08:55 40 UNIT Insulin Human Regular (humuLIN R 100 UNIT/ML 3ML) INSULIN SLIDING SCAL... ACHS SQ 03/17/24 16:30 04/16/24 16:29 03/17/24 21:39 8 UNIT Insulin Human Regular (humuLIN R 100 UNIT/ML 3ML) INSULIN SLIDING SCAL... Q4H SQ 03/16/24 21:30 03/17/24 14:45 DC 03/17/24 09:50 8 UNIT Magnesium Sulfate 50 ml @ 0 mls/hr PROTOCOL IV 03/17/24 09:30 04/16/24 09:29 03/17/24 21:56 25 MLS/HR Sodium Chloride 1,000 ml @ 150 mls/hr Q6H40M IV 03/16/24 21:30 03/18/24 10:49 DC 03/18/24 09:00 150 MLS/HR CHERI SHI MD Mar 18, 2024 11:36
[2024-03-18 11:47] LABS: CREATININE 0.6 mg/dL (0.5-1.3); POTASSIUM 3.6 mmol/L (3.5-5.1)
[2024-03-18 11:51] LABS: BILIRUBIN,TOTAL 0.4 mg/dL (0.2-1.0); MAGNESIUM 1.8 mg/dL (1.80-2.40); TOTAL PROTEIN, SERUM 5.8 g/dL (6.0-8.3)
[2024-03-18 12:00] VITALS: BP 105/66; PULSE 81; RESP 18; TEMP 99
--- NOTE | 2024-03-18 13:15 | NUR ---
DISCHARGE PATIENT HAS BEEN DISCHARGED HOME. PIV REMOVED. PRESSURE GAUZE AND TAPE APPLIED TO SITE. PATIENT VERBALIZES UNDERSTANDING OF DISCHARGE PAPERWORK. PATIENT IS TO FOLLOW UP WITH PCP WHEN ABLE AND WITH DR SHI. PATIENT PROVIDED WITH PRESCRIPTION OF DIABETIC MEDICATIONS. TELE MONITOR HAS BEEN REMOVED. PENDING RIDE.
--- NOTE | 2024-03-18 14:45 | NUR ---
DISCHARGE PATIENT'S RIDE IS HERE. PT WHEELED DOWN TO PRIVATE AUTOMOBILE, ACCOMPANIED BY WAREHOUSE [employer]ORTER.
== END 2024-03-18 14:25 | disposition home or self-care (01) | DRG 638 ==
LOC: EDH 17:02 → EDHIP 21:06 → 4BH 03-17 21:06
PROVIDERS: ADMIT Internal Medicine; ATTEND Internal Medicine
DX: E11.10 Type 2 diabetes mellitus with ketoacidosis without coma (principal); E87.1 Hypo-osmolality and hyponatremia; E78.5 Hyperlipidemia, unspecified; Z91.148 Patient's other noncompliance with medication regimen for other reason
CPT/HCPCS: 36415; 36600; 71045; 80048; 80053; 80061; 80305; 81001; 82010; 82550; 82803; 82948; 83036; 83735; 84443; 84484; 85025; 87086; 93005; 99285; G0378; J0696; J1815; J3475; J3480; J3490; J7030